=== PATIENT | male | born 1985 | race Caucasian/White ===

== ENCOUNTER 2022-12-16 04:10 | Day surgery (SDC) | payer OTHER ==
[2022-12-12 15:15] VITALS: BMI 29.7
[2022-12-16 10:32] VITALS: RESP 18
[2022-12-16] MEDS ORDERED: MIDAZOLAM HCL 2 MG/2 ML SINGLE DOSE VIAL ONE (11:19)
[2022-12-16 12:45] VITALS: PULSE 60
[2022-12-16 13:37] VITALS: BP 112/70; TEMP 98
== END 2022-12-16 13:38 | disposition home or self-care (01) ==
LOC: JASU-SURG 04:10
PROVIDERS: ATTEND Urology
PROC: 0TF3XZZ Fragmentation in Right Kidney Pelvis, External Approach (ICD-10-PCS; principal; 2022-12-16 12:00)
DX: N20.0 Calculus of kidney (principal)